=== PATIENT | male | born 1975 | race Caucasian/White ===

== ENCOUNTER 2017-10-12 13:23 | Emergency (ER) | payer MEDICARE, OTHER ==
[~2017-10-12] VITALS: Ht 182.9 cm; Wt 97.5 kg
[2017-10-12] MEDS ORDERED: IPRATRPIUM/ALBUTEROL 0.5/2.5MG 3 ML NEBU. ONE (13:44)
[2017-10-12] MEDS ORDERED: methylPREDNISolone SOD SUCC PF 40 MG/ML VIAL. IM ONE (13:45)
[2017-10-12] MEDS ORDERED: ALBUTEROL SULFATE 2.5 MG/3 ML NEBU. NEB ONE (13:45)
[2017-10-12 14:08] VITALS: BP 136/100
[2017-10-12] MEDS ORDERED: FLUT12AE IH (14:41)
[2017-10-12] MEDS ORDERED: PRED-220 PO (14:41)
[2017-10-12] MEDS ORDERED: ALBU8.5H8 INH (14:41)
--- NOTE | 2017-10-12 14:41 | PHYS DOC ---
Past History Past Medical History: Asthma, COPD Past Surgical History: Other Additional Smoking Information: less than a pack a day Alcohol Use: Occasionally Additional Alcohol Information: 2 beers or 2 shots a day Drug Use: Marijuana Adult General Chief Complaint Chief Complaint: SHORTNESS OF BREATH HPI HPI Patient is a 42 year old M who presents with cough and shortness of breath. Tod feels that these symptoms are associated with fever sweats and chills. He does have a history of asthma and states that his nebulizer has been broken recently. He has no other associated symptoms at this time. His symptoms are worse with activity and improved with rest. He has no other exacerbating or relieving factors. Review of Systems Review of Systems Constitutional: Negative except history of present illness Eyes: Denies change in visual acuity, redness, or eye pain [] HENT: Denies nasal congestion or sore throat [] Respiratory: Negative except history of present illness Cardiovascular: No additional information not addressed in HPI [] GI: Denies abdominal pain, nausea, vomiting, bloody stools or diarrhea [] : Denies dysuria or hematuria [] Musculoskeletal: Denies back pain or joint pain [] Integument: Denies rash or skin lesions [] Neurologic: Denies headache, focal weakness or sensory changes [] Endocrine: Denies polyuria or polydipsia [] All other systems were reviewed and found to be within normal limits, except as documented in this note. Family History Family History No pertinent family medical history was reported Current Medications Current Medications Current Medications Medications (Trade) Dose Ordered Sig/Alivia Start Time Stop Time Status Last Admin Dose Admin Albuterol Sulfate (Ventolin) 2.5 mg 1X ONCE 10/12/17 13:45 10/12/17 13:47 DC 10/12/17 13:50 2.5 MG Albuterol/ Ipratropium (Duoneb) 3 ml STK-MED ONCE 10/12/17 13:44 10/12/17 13:45 DC Methylprednisolone Sodium Succinate (SOLU-Medrol 40MG VIAL) 40 mg 1X ONCE 10/12/17 13:45 10/12/17 13:47 DC 10/12/17 14:03 40 MG Allergies Allergies Allergies Coded Allergies Type Severity Reaction Last Updated Verified No Known Drug Allergies 10/12/17 No Physical Exam Physical Exam Constitutional: Well developed, well nourished, no acute distress, non-toxic appearance. [] HENT: Normocephalic, atraumatic, Eyes: EOMI, conjunctiva normal, no discharge. [] Neck: Normal range of motion, no tenderness, supple, no stridor. [] Cardiovascular:Heart rate regular rhythm, Lungs & Thorax: Moderate wheezing noted Abdomen: Bowel sounds normal, soft, no tenderness, no masses, no pulsatile masses. [] Skin: Warm, dry, no erythema, no rash. [] Extremities: No tenderness, no cyanosis, no clubbing, ROM intact, no edema. [] Neurologic: Alert and oriented X 3, normal motor function, normal sensory function, no focal deficits noted. [] Psychologic: Affect normal, judgement normal, mood normal. [] Current Patient Data Vital Signs Vital Signs Date Time Temp Pulse Resp B/P (MAP) Pulse Ox O2 Delivery O2 Flow Rate FiO2 10/12/17 14:08 99.7 111 95 Room Air Lab Results Laboratory Tests Test 10/12/17 14:37 Influenza Type A (Rapid) Positive (NEGATIVE) Influenza Type B (Rapid) Negative (NEGATIVE) EKG EKG [] Radiology/Procedures Radiology/Procedures [] Course & Med Decision Making Course & Med Decision Making Pertinent Labs and Imaging studies reviewed. (See chart for details) Moderate improvement with breathing treatments and steroids. Imaging labs were declined. Further breathing treatments were declined Dragon Disclaimer Dragon Disclaimer This electronic medical record was generated, in whole or in part, using a voice recognition dictation system. Departure Departure: Impression: Primary Impression: Asthma with acute exacerbation Additional Impression: Influenza A Disposition: 01 HOME, SELF-CARE Condition: STABLE Patient Instructions: Asthma, Acute Bronchospasm Additional Instructions: Jules was seen in the emergency department for cough and shortness of breath. No emergency medical condition was found on history or physical exam. His symptoms are most consistent with an asthma exacerbation. He was given prescriptions for oral steroids, inhaled steroids and albuterol. He was advised return to the emergency room as soon as possible if he develops new or worsening symptoms. He was also found to have influenza A and was started on Tamiflu. He is also advised follow-up with his primary care doctor in the next 3-5 days for further management. Scripts Oseltamivir Phosphate (TAMIFLU) 75 Mg Capsule 1 CAP PO BID for 5 Days, #10 CAP Prov: ANAYA REEVES MD 10/12/17 Prednisone (PREDNISONE) 10 Mg Tablet 50 MG PO DAILY for 7 Days, #35 TAB Prov: ANAYA REEVES MD 10/12/17 Fluticasone Propionate (FLOVENT 110MCG HFA) 12 Gm Aer.w.adap 2 PUFF IH BID for 7 Days, #1 INHALER 2 Refills Prov: ANAYA REEVES MD 10/12/17 Albuterol Sulfate (PROAIR HFA INHALER) 8.5 Gm Hfa.aer.ad 1 PUFF INH PRN Q6HRS Y for SHORTNESS OF BREATH for 14 Days, INHALER 0 Refills Prov: ANAYA REEVES MD 10/12/17 Problem Qualifiers Primary Impression: Asthma with acute exacerbation Asthma severity: moderate Asthma persistence: unspecified Qualified Codes: J45.901 - Unspecified asthma with (acute) exacerbation ANAYA REEVES MD Oct 12, 2017 14:41
[2017-10-12 15:17] LABS: INFLUENZA A PATIENT POSITIVE (NEGATIVE)
[2017-10-12 15:18] LABS: INFLUENZA B PATIENT NEGATIVE (NEGATIVE)
[2017-10-12] MEDS ORDERED: OSEL75CA PO (15:25)
[2017-10-12] MEDS ORDERED: OSELTAMIVIR 75 MG CAPSULE PO ONE (15:30)
== END 2017-10-12 15:44 | disposition home or self-care (01) ==
LOC: ER 13:23
DX: J45.901 Unspecified asthma with (acute) exacerbation (principal); J09.X2 Influenza due to identified novel influenza A virus with other respiratory manifestations; F12.10 Cannabis abuse, uncomplicated; F17.200 Nicotine dependence, unspecified, uncomplicated
CPT/HCPCS: 87804; 94640; 96372; 99284; J2920; J7613

== ENCOUNTER → 2021-09-12 | Outpatient (CLI) | payer BC ==
[~2021-09-12] MED LIST: ALBU2.5V8 INH; FLUT12AE IH; OSEL75CA PO; PRED-220 PO
--- NOTE | 2021-09-12 09:03 | RAD ---
XR RIBS MIN 3 VIEWS RT W/PA CHEST History: Rib pain Comparison: None. Technique: PA chest with 3 views of the right ribs. Findings: The lungs are adequately and symmectrically inflated. No airspace consolidation, pleural effusion or pneumothorax. The cardiomediastinal silhoutte and pulmonary vasculature are within normal limits. Sof t tissues and osseous structures are unremarkable. No rib fracture or lesion is identified. Impression: 1. No rib fracture or sequela identified. Clear lungs. Electronically signed by: Familia Zamarripa MD (09/12/2021 9:00 AM) [id number]
== END ==
LOC: RAD 08:33
PROVIDERS: ATTEND Physician Assistant
DX: R07.81 Pleurodynia (principal)
CPT/HCPCS: 71101